=== PATIENT | male | born 1955 | race Caucasian/White ===

== ENCOUNTER 2018-07-22 00:05 | Observation (INO) | payer BC ==
[2018-07-22 00:34] LABS: ADD MAN DIFF? NO
[2018-07-22 00:38] LABS: BASOPHIL # 0.1 10^3/ul (0.0-0.1); BASOPHILS % 0.9 % (0.0-2.0); EOSINOPHILS # 0.1 10^3/ul (0.0-0.5); EOSINOPHILS % 1.4 % (0.0-7.0); HEMATOCRIT 38.1 % (42.0-52.0); LYMPHOCYTES # 1.3 10^3/ul (0.8-2.9); LYMPHOCYTES % 19.9 % (15.0-51.0); MEAN CORPUSCULAR HEMOGLOBIN 30.7 pg (29.0-33.0); MEAN CORPUSCULAR HGB CONC 34.1 g/dl (32.0-37.0); MEAN CORPUSCULAR VOLUME 89.9 fl (82.0-101.0); MEAN PLATELET VOLUME 10.4 fl (7.4-10.4); MONOCYTES % 15.3 % (0.0-11.0); NEUTROPHIL # 4.1 10^3/ul (1.6-7.5); NEUTROPHILS % 62.2 % (39.0-77.0); PLATELET COUNT 257 10^3/UL (140-415); RED BLOOD COUNT 4.24 10^6/ul (4.70-6.10); RED CELL DISTRIBUTION WIDTH 14.6 % (11.5-14.5)
[2018-07-22 00:38] LABS: WHITE BLOOD COUNT 6.5 10^3/ul (4.8-10.8)
[2018-07-22] MEDS: ASPIRIN 325 MG TAB PO (00:38)
[2018-07-22] MEDS: NITROGLYCERIN (SL) 0.4 MG TAB SL (00:38)
[2018-07-22 00:53] LABS: ANION GAP 14 (8-16); BLOOD UREA NITROGEN 14 mg/dl (7-20); CARBON DIOXIDE 30 mmol/L (21-31); CHLORIDE 95 mmol/L (97-110); CREATININE 0.77 mg/dl (0.61-1.24); GLUCOSE 89 mg/dl (70-220); SODIUM 135 mmol/L (135-144)
[2018-07-22 01:05] LABS: B-TYPE NATRIURETIC PEPTIDE 316 PG/ML (0-125); TROPONIN-I < 0.012 ng/ml (0.000-0.120)
[2018-07-22] MEDS ORDERED: NITROGLYCERIN (SL) 0.4 MG TAB SL (03:00)
[2018-07-22] MEDS ORDERED: NACL 0.9% 3 ML SYG IV (03:00)
[2018-07-22] MEDS ORDERED: ALBUTEROL/IPRATROPIUM (NEB) 3 ML AMP HHN (03:00)
[2018-07-22] MEDS ORDERED: ONDANSETRON 4 MG INJ IV (03:00)
[2018-07-22] MEDS ORDERED: ZOLPIDEM 5 MG TAB PO (03:00)
[2018-07-22] MEDS ORDERED: ACETAMINOPHEN 325 MG TAB PO (03:00)
[2018-07-22] MEDS: HYDROCODONE/APAP (5/325) TAB PO (03:10)
[2018-07-22] MEDS: morphine 4 MG/ML VIAL IV (03:41)
[2018-07-22] MEDS: PANTOPRAZOLE (EC) 40 MG TAB PO (06:23)
[2018-07-22 06:53] LABS: ADD MAN DIFF? NO
[2018-07-22 06:55] LABS: WHITE BLOOD COUNT 4.5 10^3/ul (4.8-10.8)
[2018-07-22 06:55] LABS: BASOPHILS % 0.9 % (0.0-2.0); EOSINOPHILS # 0.1 10^3/ul (0.0-0.5); EOSINOPHILS % 1.8 % (0.0-7.0); HEMATOCRIT 35.6 % (42.0-52.0); HEMOGLOBIN 12.2 g/dl (14.0-18.0); LYMPHOCYTES # 1.1 10^3/ul (0.8-2.9); LYMPHOCYTES % 24.9 % (15.0-51.0); MEAN CORPUSCULAR HGB CONC 34.3 g/dl (32.0-37.0); MEAN CORPUSCULAR VOLUME 90.4 fl (82.0-101.0); MEAN PLATELET VOLUME 10.8 fl (7.4-10.4); MONOCYTE # 0.7 10^3/ul (0.3-0.9); MONOCYTES % 15.6 % (0.0-11.0); NEUTROPHIL # 2.6 10^3/ul (1.6-7.5); NEUTROPHILS % 56.6 % (39.0-77.0); PLATELET COUNT 229 10^3/UL (140-415); RED BLOOD COUNT 3.94 10^6/ul (4.70-6.10); RED CELL DISTRIBUTION WIDTH 14.5 % (11.5-14.5)
[2018-07-22 07:25] LABS: HEMOGLOBIN A1C 5.8 % (0-5.9)
[2018-07-22 07:41] LABS: ALANINE AMINOTRANSFERASE 30 IU/L (13-69); ALBUMIN/GLOBULIN RATIO 1.07; ALKALINE PHOSPHATASE 71 IU/L (42-121); ANION GAP 13 (8-16); ASPARTATE AMINO TRANSFERASE 21 IU/L (15-46); BILIRUBIN,INDIRECT 0.5 mg/dl (0-1.1); BILIRUBIN,TOTAL 0.5 mg/dl (0.2-1.3); BLOOD UREA NITROGEN 13 mg/dl (7-20); CALCIUM 8.7 mg/dl (8.4-10.2); CARBON DIOXIDE 28 mmol/L (21-31); CHLORIDE 98 mmol/L (97-110); CHOL/HDL RATIO 1.9 RATIO; CHOLESTEROL 59 mg/dl (100-200); CREATININE 0.68 mg/dl (0.61-1.24); GLUCOSE 76 mg/dl (70-220); HDL CHOLESTEROL 30 mg/dl (30-78); LDL CHOLESTEROL,CALCULATED 22 mg/dl; MAGNESIUM 1.8 mg/dl (1.7-2.5); POTASSIUM 4.1 mmol/L (3.5-5.1); SODIUM 135 mmol/L (135-144); TOTAL PROTEIN 5.8 g/dl (6.1-8.1); TRIGLYCERIDES 36 mg/dl (0-149)
[2018-07-22 07:42] LABS: CK-MB 1.93 ng/ml (0.0-2.4); TROPONIN-I < 0.012 ng/ml (0.000-0.120)
[2018-07-22 07:49] LABS: CK INDEX 2.4; CREATINE KINASE 80 IU/L (23-200)
[2018-07-22] MEDS ORDERED: NON-FORMULARY/PATIENT OWN MED (Omeprazole* 20 MG) PO (09:00)
[2018-07-22] MEDS ORDERED: NON-FORMULARY/PATIENT OWN MED (Clopidogrel Bisulfate* 75 MG) PO (09:00)
[2018-07-22] MEDS: METOPROLOL (XL) 25 MG TAB PO (09:00)
[2018-07-22] MEDS: MESALAMINE (EC) 400 MG CAP PO ×2 (09:02→12:18)
[2018-07-22] MEDS: AZATHIOPRINE 50 MG TAB PO (09:02)
[2018-07-22] MEDS: CLOPIDOGREL 75 MG TAB PO (09:02)
[2018-07-22] MEDS: LISINOPRIL 20 MG TAB PO (09:03)
[2018-07-22] MEDS: ENOXAPARIN 40 MG/0.4 ML SYG SC (09:10)
[2018-07-22 13:01] LABS: CREATINE KINASE 99 IU/L (23-200)
[2018-07-22 13:13] LABS: CK INDEX 2.4; TROPONIN-I < 0.012 ng/ml (0.000-0.120)
[2018-07-22] MEDS ORDERED: ATORVASTATIN 80 MG TAB PO (21:00)
== END 2018-07-22 18:25 | disposition home or self-care (01) ==
LOC: E/R 00:05 → 6WM 02:18
DX: R07.9 Chest pain, unspecified (principal); I10 Essential (primary) hypertension; I25.10 Atherosclerotic heart disease of native coronary artery without angina pectoris; I25.2 Old myocardial infarction
CPT/HCPCS: 36415; 71045; 80048; 80053; 80061; 82550; 82553; 83036; 83735; 83880; 84443; 84484; 85025; 93005; 93306; 99217; 99285-25